=== PATIENT | female | born 1940 | race Caucasian/White ===

== ENCOUNTER → 2017-11-27 | Outpatient (CLI) | payer MEDICARE, BC ==
[~2017-11-27] MED LIST: ACIDOPHILUS1 EAC4 PO; ARMOUR THYROID60 M1 PO; ASPIRIN325 PO; BACID CAPLET1 EACH PO; CELEBREX 200 M200 M1 PO; DICLOFENAC SODI25 MG PO; ELIQUIS2.5 MG PO; FRESHKOTE15 ML TOP; LIPITOR10 MG PO; MAXZIDE 75-501 EACH PO; OXYCODONE HCL 55 MG PO; POTASSIUM CHLO10 MEQ PO; RESTASIS1 EACH OPHTHALMIC
== END ==
LOC: M.RAD 09:00
DX: R92.8 Other abnormal and inconclusive findings on diagnostic imaging of breast (principal)

== ENCOUNTER → 2018-05-28 | Outpatient (CLI) | payer MEDICARE, BC | LOC: M.RAD 09:01 | DX: Z12.31 Encounter for screening mammogram for malignant neoplasm of breast (principal) ==

== ENCOUNTER → 2019-06-02 | Outpatient (CLI) | payer MEDICARE, BC | LOC: M.RAD 10:15 | DX: Z12.31 Encounter for screening mammogram for malignant neoplasm of breast (principal); M85.88 Other specified disorders of bone density and structure, other site ==

== ENCOUNTER → 2020-03-09 | Outpatient (CLI) | payer MEDICARE, BC | END | disposition home or self-care (01) | LOC: M.RAD 08:52 | PROVIDERS: ATTEND Orthopaedic Surgery | DX: M25.551 Pain in right hip (principal); M16.11 Unilateral primary osteoarthritis, right hip; M54.16 Radiculopathy, lumbar region; Z79.01 Long term (current) use of anticoagulants; Z79.899 Other long term (current) drug therapy ==

== ENCOUNTER → 2020-06-07 | Outpatient (CLI) | payer MEDICARE, BC | LOC: M.RAD 07:00 | PROVIDERS: ATTEND Internal Medicine | DX: Z12.31 Encounter for screening mammogram for malignant neoplasm of breast (principal); N64.89 Other specified disorders of breast ==

== ENCOUNTER → 2021-02-14 | Outpatient (CLI) | payer MEDICARE, BC | LOC: M.RAD 10:00 | PROVIDERS: ATTEND Nurse Practitioner Family | DX: M81.0 Age-related osteoporosis without current pathological fracture (principal); Z78.0 Asymptomatic menopausal state ==

== ENCOUNTER → 2021-06-24 | Outpatient (CLI) | payer MEDICARE, BC | LOC: M.RAD 06-10 10:30 | PROVIDERS: ATTEND Nurse Practitioner Family | DX: Z12.31 Encounter for screening mammogram for malignant neoplasm of breast (principal) ==